=== PATIENT | female | born 1945 | race Caucasian/White ===

== ENCOUNTER 2022-12-09 18:48 | Emergency (ER) | payer MEDICARE, OTHER ==
[2022-12-09] MEDS ORDERED: BUFFERED LIDOCAINE 10 ML SYRINGE SUBQ STA (18:57)
--- NOTE | 2022-12-09 19:28 | ED Physician Documentation ---
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: Oophrectomy - Present Medications Home Medications: Ambulatory Orders Medication Instructions Recorded Confirmed Citalopram [CeleXA] 12/11/15 Folic Acid 12/11/15 Hydroxychloroquine [Plaquenil] BID 12/11/15 Methotrexate Sodium/Pf 12/11/15 [Methotrexate 25 mg/ml Vial] Multivitamin [Multivitamins] 12/11/15 Tocilizumab [Actemra] 12/11/15 - Allergies Allergies/Adverse Reactions: Allergies Allergy/AdvReac Type Severity Reaction Status Date / Time No Known Drug Allergies Allergy Verified 12/11/15 17:14 - Social History Does the pt smoke?: No Smoking Status: Never smoker Does the pt drink ETOH?: No Does the pt have substance abuse?: No PD ED PE NORMAL - Vitals Vital signs reviewed: Yes - General General: Alert and oriented X 3, No acute distress - Extremities Extremities: Other (2 cm flap laceration of the radial side of the distal phalanx of the left small finger without distal neurovascular compromise) Results - Vitals Vitals: Vital Signs - 24 hr 12/09/22 18:52 Temperature 35.9 C L Heart Rate 65 Respiratory 20 Rate Blood Pressure 111/72 O2 Saturation 97 Oxygen O2 Source Room air Procedures - Laceration (location) Left small finger Length in cm: 2 Wound type: Curved, Superficial Neurovascular status: Sensory intact, Motor intact Anesthesia: Lidocaine 1%, With bicarb Wound preparation: Irrigated copiously NS Skin layer closure: Nylon, Interrupted, Size #-0 - enter number (5 oh), Sutures - enter # (5) Other: Patient tolerated well, No complications, Neurovascular intact, Tetanus UTD Departure - Departure Disposition: 01 Home, Self Care Clinical Impression: Laceration of left little finger Qualifiers: Encounter type: initial encounter Damage to nail status: without damage Foreign body presence: without foreign body Qualified Code(s): S61.217A - Laceration without foreign body of left little finger without damage to nail, initial encounter Condition: Good Record reviewed to determine appropriate education?: Yes Instructions: ED Laceration Hand Comments: Come back for any signs of infection which would include: Redness, swelling, drainage, increased pain, or fevers. You can wash it soap and water. Keep it covered and moist with bacitracin ointment which is available over the counter; avoid neosporin. Follow-up with your physician in about 14 days for suture removal.
[2022-12-09 20:21] VITALS: BP 105/74
== END 2022-12-09 20:21 | disposition home or self-care (01) ==
LOC: ED 18:48
DX: S61.217A Laceration without foreign body of left little finger without damage to nail, initial encounter (principal); W26.0XXA Contact with knife, initial encounter; Y93.G1 Activity, food preparation and clean up
CPT/HCPCS: 12001; 99283